=== PATIENT | male | born 1950 | race Caucasian/White ===

== ENCOUNTER 2016-11-10 12:45 | Emergency (ER) | payer MEDICAID ==
[2016-11-10 13:20] VITALS: TEMP 97.5
--- NOTE | 2016-11-10 13:44 | EDPHY ---
H & P Stated Complaint: Severe neck Pain for 6 weeks. Time Seen by Provider: 11/10/16 13:42 - Personal History Current Tetanus Diphtheria and Acellular Pertussis (TDAP): Unsure - Medical/Surgical History Hx Asthma: No Hx Chronic Respiratory Disease: Yes Hx Diabetes: No Hx Cardiac Disease: No Hx Renal Disease: No Hx Cirrhosis: No Hx Alcoholism: No Hx HIV/AIDS: No Hx Splenectomy or Spleen Trauma: No Other PMH: COPD - Social History Smoking Status: Current every day smoker Constitutional: Initial Vital Signs Temperature (C) 36.4 C 11/10/16 13:17 Heart Rate 110 H 11/10/16 13:17 Respiratory Rate 22 H 11/10/16 13:17 Blood Pressure 157/94 H 11/10/16 13:17 O2 Sat (%) 94 11/10/16 13:17 O2 Delivery Mode Room Air Allergies/Adverse Reactions: No Known Allergies Allergy (Unverified 05/15/16 22:07) Home Medications: Medication Instructions Recorded Herbals/Supplements -Info Only 1 ea PO AD 09/26/14 Multivitamins [Multivitamin (*)] 1 each PO HS 09/26/14 Albuterol [Proventil] 2 puffs IH Q4 PRN 09/20/15 Fluticasone/Salmeter 250/50Mcg 1 puffs IH BID #1 disk 09/24/15 [Advair] Ipratropium [Atrovent Hfa] 2 puffs IH QID #1 mdi 09/24/15 guaiFENesin [Mucinex 600 MG (*)] 1,200 mg PO BID #0 tab.er 09/24/15 Medical Decision Making ED Course/Re-evaluation: CHIEF COMPLAINT: HISTORY OF PRESENT ILLNESS: must have 4 elements: Location, Quality, Severity , Duration, Timing, Context, Modifying Factors, Associated Signs and Symptoms REVIEW OF SYSTEMS: A 10 point review of systems was performed and is negative with the exception of the elements mentioned in the history of present illness. PHYSICAL EXAM: HR, BP, O2 Sat, RR. Temp noted General Appearance: Alert, well hydrated, appropriate, and non-toxic appearing. Head: Atraumatic without scalp tenderness or obvious injury Eyes: Pupils equal, round, reactive to light and accommodation, EOMI, no trauma , no injection. Ears: Clear bilaterally, no perforation, normal landmarks Nose: Atraumatic, no rhinorrhea, clear. Throat: There is no erythema or exudates, no lesions, normal tonsils, mucus membranes moist. Neck: Supple, 2+ carotid upstroke, nontender, no lymphadenopathy. Respiratory: No retractions, no distress, no wheezes, and no accessory muscle use. Lungs are clear to auscultation bilaterally. Cardiovascular: Regular rate and rhythm, no murmurs, rubs, or gallops. Bilateral carotid, radial, dorsalis pedis, and posterior tibial pulses intact. Good capillary refill all extremities. Gastrointestinal: Abdomen is soft, nontender, non-distended, no masses, no rebound, no guarding, no peritoneal signs. Musculoskeletal: Normal active ROM of all extremities, atraumatic. Neurological: Alert, appropriate, and interactive. The patient has normal DTRs and non-focal cranial nerves, motor, sensory, and cerebellar exam. Skin: No rashes, good turgor, no nodules on palpation. Past medical history: Past surgical history: Family history: Social history: DIAGNOSTICS/PROCEDURES/CRITICAL CARE TIME: DIFFERENTIAL DIAGNOSIS: MEDICAL DECISION MAKING: Departure - Departure Referrals: NONE *PRIMARY CARE P,. [Primary Care Provider] - As per Instructions
[2016-11-10] MEDS ORDERED: IPRATROPIUM/ALBUTEROL 3 ML DEYVIAL IH ONE (14:48)
[2016-11-10 14:59] VITALS: RESP 16; O2SAT 98
[2016-11-10 15:16] VITALS: BP 127/80; PULSE 82
--- NOTE | 2016-11-10 16:56 | EDPHY ---
H & P Stated Complaint: Severe neck Pain for 6 weeks. Time Seen by Provider: 11/10/16 13:42 HPI/ROS: Chief complaint: Neck pain History of present illness: This is a 66-year-old male who presents to the emergency department for evaluation and treatment of neck pain. Patient reports he has a problem with his neck around the C7 level. He recently had an MRI which confirmed this problem He has had pain for the last 6 weeks. He is currently in physical therapy. However pain persists. He presents today requesting pain control. He further reports he has a cough from his COPD. However, patient has been very belligerent in the emergency room. He has admitted to drinking some alcohol. It is very difficult to have a conversation with this patient given that he is very belligerent. Review of systems: Unable to obtain as patient is just angry at me and rambling about his problems - Personal History Current Tetanus Diphtheria and Acellular Pertussis (TDAP): Unsure - Medical/Surgical History Hx Asthma: No Hx Chronic Respiratory Disease: Yes Hx Diabetes: No Hx Cardiac Disease: No Hx Renal Disease: No Hx Cirrhosis: No Hx Alcoholism: No Hx HIV/AIDS: No Hx Splenectomy or Spleen Trauma: No Other PMH: COPD - Social History Smoking Status: Current every day smoker - Physical Exam Exam: General Appearance: Alert, nontoxic, ambulating around the emergency department. Eyes: Pupils equal and round no pallor or injection. ENT, Mouth: Mucous membranes moist. Respiratory: A cough is noted. Diffuse wheezing is noted. Cardiovascular: Regular rate and rhythm. Gastrointestinal: Abdomen is soft and nontender, no masses, bowel sounds normal. Neurological: Alert. Strength and sensation intact and symmetrical. Skin: Warm and dry, no rashes. Musculoskeletal: Neck is supple nontender. Extremities are symmetrical, full range of motion. Psychiatric: Patient is oriented X 3, there is no agitation. Constitutional: Initial Vital Signs Temperature (C) 36.4 C 11/10/16 13:17 Heart Rate 110 H 11/10/16 13:17 Respiratory Rate 22 H 11/10/16 13:17 Blood Pressure 157/94 H 11/10/16 13:17 O2 Sat (%) 94 11/10/16 13:17 O2 Delivery Mode Room Air Allergies/Adverse Reactions: No Known Allergies Allergy (Unverified 05/15/16 22:07) Home Medications: Medication Instructions Recorded Herbals/Supplements -Info Only 1 ea PO AD 09/26/14 Multivitamins [Multivitamin (*)] 1 each PO HS 09/26/14 Albuterol [Proventil] 2 puffs IH Q4 PRN 09/20/15 Fluticasone/Salmeter 250/50Mcg 1 puffs IH BID #1 disk 09/24/15 [Advair] Ipratropium [Atrovent Hfa] 2 puffs IH QID #1 mdi 09/24/15 guaiFENesin [Mucinex 600 MG (*)] 1,200 mg PO BID #0 tab.er 09/24/15 Medical Decision Making - Diagnostics Imaging: Chest x-ray negative for acute findings Procedures: Previous records reviewed including recent physical therapy note with description of MRI results ED Course/Re-evaluation: Patient seen under the supervision of my secondary supervising physician Dr. Arnoldo Morton. Patient presents to the emergency department complaining of neck pain. Subsequently complaining of a cough with history of COPD. Patient has been belligerent in the emergency department. Does report drinking some alcohol today. However he is clinically sober to me. When he will discuss subject matters with me he discusses it very clearly, he is ambulating without difficulty. However mostly he is just upset. He is given a DuoNeb, chest x- ray obtained and stable. Ultimately he decided to leave against medical advice. Security did accompany him out of the emergency room. Because he was admitting to drinking alcohol police were notified that he was trying to go to his car. Differential Diagnosis: Included but not limited to muscle spasms, herniated intervertebral disc, unlikely bony fracture spinal cord lesion, COPD exacerbation, bronchitis, pneumonia - Data Points Medications Given: Discontinued Medications Albuterol/Ipratropium (Duoneb) 3 ml IH EDNOW ONE Stop: 11/10/16 14:49 Last Admin: 11/10/16 14:54 Dose: 3 ml Departure - Departure Disposition: Against Medical Advice Clinical Impression: Neck pain, Cough Condition: Fair Referrals: NONE *PRIMARY CARE P,. [Primary Care Provider] - As per Instructions
== END 2016-11-10 16:00 | disposition left against medical advice (07) ==
DX: M54.2 Cervicalgia (principal); R05 Cough; J44.9 Chronic obstructive pulmonary disease, unspecified; F17.200 Nicotine dependence, unspecified, uncomplicated

== ENCOUNTER → 2016-12-25 | Outpatient (CLI) | payer MEDICAID | LOC: CIMAGING 08:25 | PROVIDERS: ATTEND Internal Medicine Pulmonary Disease | DX: J98.4 Other disorders of lung (principal); F17.210 Nicotine dependence, cigarettes, uncomplicated | CPT/HCPCS: 71250-PO ==

== ENCOUNTER → 2017-01-16 | Outpatient (CLI) | payer MEDICAID | LOC: FIMAGING 08:15 | PROVIDERS: ATTEND Internal Medicine Pulmonary Disease | DX: K21.9 Gastro-esophageal reflux disease without esophagitis (principal); J84.9 Interstitial pulmonary disease, unspecified ==

== ENCOUNTER 2017-04-24 17:50 | Emergency (ER) | payer MEDICAID ==
[2017-04-24 17:59] VITALS: PULSE 76; RESP 18; TEMP 98.2
[2017-04-24] MEDS ORDERED: DEXAMETHASONE 10 MG/ML VIAL IVP ONE (18:23)
--- NOTE | 2017-04-24 18:32 | EDPHY ---
H & P Time Seen by Provider: 04/24/17 18:29 HPI/ROS: HPI: This is the 66-year-old male who presents with Chief Complaint: Right great toe and left midfoot swelling Location: Right great toe, left midfoot Quality: Swelling Duration: 1 week Signs and Symptoms: Positive mild redness, positive mild to moderate pain, positive pain with weight-bearing, no radiation, no weakness, no injury, no shortness of breath, no chest pain, no calf pain, no recent long distance travel Timing: Gradual onset Severity: Moderate Context: This is a partially homeless male has a history of COPD and gout who presents with "I have gout in both feet." Patient follows with the [facility] and states that last week he was given indomethacin but only took it 1 day. Then return to the clinic 3 days later and they gave him colchicine but he only took it 1 day. Now he presents to the emergency room complaining that the medications are not helping as gout. Patient is unsure about his renal function. Denies any injuries. Does wear shoes. Walks a considerable amount. Modifying Factors: Indomethacin, colchicine no relief Comment: ROS: Eyes: No blurred vision Respiratory: No shortness of breath, no cough Cardiovascular: No chest pain Gastrointestinal: No nausea, no vomiting no diarrhea Genitourinary: No dysuria Extremities: No myalgias Neurologic: No weakness, no numbness Skin: No rashes Hematologic: No bruising, no bleeding MEDICAL/SURGICAL HISTORY: COPD. Gout. Denies any surgical history. 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 Smoking Status: Current every day smoker Physical Exam: CONSTITUTIONAL: Elderly white well-appearing adult white male, awake and alert , no obvious distress HEENT: Atraumatic and normocephalic, long jones díaz. moderate PILOT STATION. PERRL, EOMI. Tympanic membranes clear. Oropharynx clear, no exudate and moist pink mucosa. Airway patent. No lymphadenopathy. No meningismus. Cardiovascular: Normal S1/S2, regular rate, regular rhythm, without murmur rub or gallop. PULMONARY/CHEST: Symmetrical and nontender. Clear to auscultation bilaterally Good air movement. No accessory muscle usage. ABDOMEN: Soft, nondistended, nontender, no rebound, no guarding, no peritoneal signs, no masses or organomegaly. No CVAT. EXTREMITIES: 2/2 pulses, no deformities, no clubbing, no cyanosis or edema. Right great toe shows mild swelling and erythema; flexion extension intact. Left midfoot medial portion shows mild erythema and swelling. Light touch sensation intact. No calf tenderness. NEUROLOGICAL: no focal neuro deficits. GCS 15. SKIN: Warm and dry, no erythema. no rash. Good capillary refill. Constitutional: Initial Vital Signs Temperature (C) 36.8 C 04/24/17 17:55 Heart Rate 76 04/24/17 17:55 Respiratory Rate 18 04/24/17 17:55 Blood Pressure 130/90 H 04/24/17 17:55 O2 Sat (%) 95 04/24/17 17:55 O2 Delivery Mode Room Air Allergies/Adverse Reactions: No Known Allergies Allergy (Unverified 05/15/16 22:07) Home Medications: Medication Instructions Recorded Herbals/Supplements -Info Only 1 ea PO AD 09/26/14 Multivitamins [Multivitamin (*)] 1 each PO HS 09/26/14 Albuterol [Proventil] 2 puffs IH Q4 PRN 09/20/15 Fluticasone/Salmeter 250/50Mcg 1 puffs IH BID #1 disk 09/24/15 [Advair] Ipratropium [Atrovent Hfa] 2 puffs IH QID #1 mdi 09/24/15 Colchicine 04/24/17 Indomethacin 04/24/17 Medical Decision Making ED Course/Re-evaluation: Bilateral foot x-rays, labs, IV medication given Patient given IV Decadron and advised to take the indomethacin 3 times a day as well as the colchicine daily as prescribed. Suspect patient did not understand instructions and less likely noncompliant With the x-rays my read showed no fractures, dislocation; mild degenerative changes at the metatarsal and spurring noted at both calcaneus Creatinine 1.4 and uric acid high normal No signs of neurovascular compromise, congestive heart failure, DVT, cellulitis , thrombophlebitis, achilles tendon rupture Differential Diagnosis: Leg swelling including but not limited to hypoalbuminemia, congestive heart failure, cor pulmonale, chronic venous stasis and DVT. - Data Points Laboratory Results: Laboratory Results 04/24/17 18:23 04/24/17 18:23 Sodium 140 mEq/L mEq/L (134-144) Potassium 4.7 mEq/L mEq/L (3.5-5.2) Chloride 106 mEq/L mEq/L (97-110) Carbon Dioxide 21 mEq/l L mEq/l (22-31) Anion Gap 13 mEq/L mEq/L (8-16) BUN 25 mg/dL H mg/dL (7-23) Creatinine 1.4 mg/dL H mg/dL (0.7-1.3) Estimated GFR 51 Glucose 84 mg/dL mg/dL (70-100) Uric Acid 8.4 mg/dL mg/dL (3.5-8.5) Calcium 9.5 mg/dL mg/dL (8.5-10.4) Medications Given: Discontinued Medications Dexamethasone (Decadron Injection) 10 mg IVP EDNOW ONE Stop: 04/24/17 18:24 Last Admin: 04/24/17 18:54 Dose: 10 mg Departure - Departure Disposition: Home, Routine, Self-Care Clinical Impression: Gouty arthropathy Condition: Good Instructions: Gout (ED) Additional Instructions: Take all medications as directed; including indomethacin and colchicine. Referrals: Selina Diaz NP [Primary Care Provider] - As per Instructions [facility],. [Clinic] - 5-7 days, if not improved
[2017-04-24 19:19] LABS: ANION GAP 13 mEq/L (8-16); CALCIUM 9.5 mg/dL (8.5-10.4); CARBON DIOXIDE 21 mEq/l (22-31); CHLORIDE 106 mEq/L (97-110); CREATININE 1.4 mg/dL (0.7-1.3); GLOMERULAR FILTRATION RATE 51; GLUCOSE 84 mg/dL (70-100); POTASSIUM 4.7 mEq/L (3.5-5.2); SODIUM 140 mEq/L (134-144); URIC ACID 8.4 mg/dL (3.5-8.5)
[2017-04-24 19:49] VITALS: BP 133/87; O2SAT 97
== END 2017-04-24 19:48 | disposition home or self-care (01) ==
DX: M10.071 Idiopathic gout, right ankle and foot (principal); M10.072 Idiopathic gout, left ankle and foot; J44.9 Chronic obstructive pulmonary disease, unspecified; F17.200 Nicotine dependence, unspecified, uncomplicated
CPT/HCPCS: 96374; J1100

== ENCOUNTER 2018-07-08 23:27 | Emergency (ER) | payer MEDICAID, OTHER ==
[2018-07-08] MEDS ORDERED: IPRATROPIUM/ALBUTEROL 3 ML DEYVIAL ONE (23:48)
[2018-07-08] MEDS ORDERED: IPRATROPIUM/ALBUTEROL 3 ML DEYVIAL IH ONE (23:51)
--- NOTE | 2018-07-08 23:51 | EDPHY ---
H & P Stated Complaint: "i'm cold, i'm homeless", difficulty breathing, hx COPD Time Seen by Provider: 07/08/18 23:39 HPI/ROS: Chief Complaint: COPD,"cold" HPI: 67-year-old homeless male who lives in a storage container in his car is presenting complaining of being cold and having worsening breathing. Patient has a history of COPD. He has been compliant with his inhaled steroids and his albuterol. Denies cough. No fever but has had chills. Says that he was shaking tonight. Became concerned because of his shaking and presented to the emergency depart for further evaluation. No nausea or vomiting. No chest pain. He is chronically short of breath at his baseline. No other recent illness. He does admit to drinking alcohol tonight. ROS: 10 systems were reviewed and were negative except those elements noted in the HPI. PMH: COPD Social History: Positive smoking, daily alcohol Family History: non-contributory Physical Exam: Vital signs noted. Patient is not hypoxic. Gen: Awake, Alert, No Distress HEENT: Nose: no rhinorrhea Eyes: PERRLA, EOMI Mouth: Moist mucosa Neck: Supple, no JVD Chest: nontender, diffuse expiratory wheezes, no focal rales or rhonchi Heart: S1, S2 normal, no murmur Abd: Soft, non-tender, no guarding Back: no CVA tenderness, no midline tenderness Ext: no edema, non-tender Skin: no rash Neuro: CN II-XII intact, Sensation grossly intact, Strength 5/5 in bilateral upper and lower extremities - Personal History Current Tetanus Diphtheria and Acellular Pertussis (TDAP): No - Medical/Surgical History Hx Asthma: No Hx Chronic Respiratory Disease: Yes Hx Diabetes: No Hx Cardiac Disease: No Hx Renal Disease: No Hx Cirrhosis: No Hx Alcoholism: No Hx HIV/AIDS: No Hx Splenectomy or Spleen Trauma: No Other PMH: COPD - Social History Smoking Status: Current every day smoker Constitutional: Initial Vital Signs Temperature (C) 36.0 C 07/08/18 23:36 Heart Rate 90 07/08/18 23:36 Respiratory Rate 20 07/08/18 23:36 Blood Pressure 137/89 H 07/08/18 23:36 O2 Sat (%) 88 L 07/08/18 23:36 O2 Delivery Mode Room Air Allergies/Adverse Reactions: No Known Allergies Allergy (Unverified 05/15/16 22:07) Home Medications: Medication Instructions Recorded Herbals/Supplements -Info Only 1 ea PO AD 09/26/14 Multivitamins [Multivitamin (*)] 1 each PO HS 09/26/14 Albuterol [Proventil] 2 puffs IH Q4 PRN 09/20/15 Fluticasone/Salmeter 250/50Mcg 1 puffs IH BID #1 disk 09/24/15 [Advair] Ipratropium [Atrovent Hfa] 2 puffs IH QID #1 mdi 09/24/15 Colchicine 04/24/17 Indomethacin 04/24/17 Medical Decision Making ED Course/Re-evaluation: Patient is improved after DuoNeb. Lungs are clear. No wheeze. No crackles or infiltrate. Oxygen saturations in the mid 90s. Patient is not tachypneic. Patient is asking me why he is feeling so shaky. I have explained to them that is the inhaled DuoNeb. He is concerned there might be something else going on. I have explained to him that his oxygen saturations are excellent, is lungs are clear. Heart rate is normal. I do not see any evidence of acute neurologic or infectious process. Patient is becoming frustrated with this and wants explanation. I have explained to him that his believe is secondary to the medications he received. He states that he does not wish to remain in the emergency department any longer. He would like to leave. I think that this is appropriate. Will be discharged home. Plan will be to discharge, follow up with [facility]. Continue taking his usual COPD medications. - Data Points Medications Given: Discontinued Medications Albuterol/Ipratropium (Duoneb) 3 ml IH EDNOW ONE Stop: 07/08/18 23:52 Last Admin: 07/08/18 23:52 Dose: 3 ml Departure - Departure Disposition: Home, Routine, Self-Care Clinical Impression: Chronic obstructive pulmonary disease with acute exacerbation Condition: Good Instructions: COPD (Chronic Obstructive Pulmonary Disease) (ED) Additional Instructions: Follow up at [facility] in 2-3 days for further evaluation. Return to the emergency department for increasing shortness of breath, chest pain, uncontrolled cough, fevers, chills, or any other concerns. Referrals: [facility],. [Clinic] - As per Instructions
[2018-07-09 00:24] VITALS: BP 136/75
== END 2018-07-09 01:03 | disposition home or self-care (01) ==
DX: J44.1 Chronic obstructive pulmonary disease with (acute) exacerbation (principal); F17.200 Nicotine dependence, unspecified, uncomplicated; Z59.0 Homelessness